=== PATIENT | male | born 1985 | race Caucasian/White ===

== ENCOUNTER 2020-11-17 09:09 | Emergency (ER) | payer OTHER ==
[~2020-11-17] VITALS: Ht 185.4 cm; Wt 106.8 kg
[2020-11-17] MEDS ORDERED: IBUP-1506 PO (09:18)
[2020-11-17 10:30] VITALS: BP 139/72
== END 2020-11-17 10:30 | disposition home or self-care (01) ==
LOC: EMS 09:18
DX: S83.91XA Sprain of unspecified site of right knee, initial encounter (principal); J45.909 Unspecified asthma, uncomplicated; F17.210 Nicotine dependence, cigarettes, uncomplicated; Z91.030 Bee allergy status; Z91.013 Allergy to seafood; V89.9XXA Person injured in unspecified vehicle accident, initial encounter; Y93.89 Activity, other specified; Y92.89 Other specified places as the place of occurrence of the external cause; Y99.0 Civilian activity done for income or pay
CPT/HCPCS: 99282; 99283

== ENCOUNTER 2023-10-14 06:37 | Emergency (ER) | payer MEDICAID ==
[~2023-10-14] VITALS: Ht 185.4 cm; Wt 127.3 kg
[~2023-10-14 06:37] MED LIST: IBUP-1506 PO
[2023-10-14 07:57] LABS: COVID AG,FIA SOURCE NASAL SWAB
[2023-10-14 08:17] LABS: INFLUENZA TYPE A NEGATIVE FOR TYPE A (NEGATIVE); INFLUENZA TYPE B NEGATIVE FOR TYPE B (NEGATIVE); SARS-COV2 (COVID) ANTIGEN,FIA Negative (Negative)
[2023-10-14] MEDS ORDERED: 0.9% SODIUM CHLORIDE 5 ML NEB SOLUTION NEB ONE (08:43)
[2023-10-14] MEDS ORDERED: PredniSONE 20 MG TABLET PO ONE (08:45)
[2023-10-14] MEDS ORDERED: ALBUTEROL SULFATE 2.5 MG/0.5 ML NEB SOLUTION NEB ONE (08:45)
[2023-10-14 08:49] VITALS: PULSE 98; RESP 18; O2SAT 98
[2023-10-14 08:51] VITALS: PULSE 98; RESP 18; O2SAT 98
[2023-10-14 09:03] VITALS: PULSE 99; RESP 18; O2SAT 100
[2023-10-14] MEDS ORDERED: PRED-554 PO (09:28)
[2023-10-14] MEDS ORDERED: ALBU18HF12 IH (09:28)
[2023-10-14 11:04] VITALS: BP 135/94; PULSE 89; RESP 18; TEMP 98.5
== END 2023-10-14 11:09 | disposition home or self-care (01) ==
LOC: EMS 06:38
DX: J45.909 Unspecified asthma, uncomplicated (principal); Z87.891 Personal history of nicotine dependence; Z91.030 Bee allergy status; Z20.822 Contact with and (suspected) exposure to COVID-19
CPT/HCPCS: 99285; 71045; 87426; 87804; 94640; 93005; J7512; J7613

== ENCOUNTER 2024-03-31 06:54 | Emergency (ER) | payer MEDICAID, OTHER ==
[~2024-03-31] VITALS: Ht 185.4 cm; Wt 104.5 kg
[~2024-03-31 06:54] MED LIST changes: +ALBU18HF12 IH; +PRED-554 PO
[2024-03-31 07:00] VITALS: TEMP 97.4
[2024-03-31] MEDS ORDERED: HYDR-4808 PO (07:00)
[2024-03-31] MEDS ORDERED: ESCI-8 PO (07:00)
[2024-03-31] MEDS ORDERED: GABA-1181 PO (07:00)
[2024-03-31 07:38] LABS: BASOPHILS % (AUTO) 0.6 % (0.0-2.0); EOSINOPHILS % (AUTO) 2.7 % (1.0-6.0); HEMATOCRIT 47.5 % (41-53); HEMOGLOBIN 16.3 g/dL (13.5-17.5); LYMPHOCYTES # (AUTO) 2.9 K/uL (1.0-4.8); LYMPHOCYTES % (AUTO) 35.3 % (22.0-44.0); MEAN CORPUSCULAR HEMOGLOBIN 29.8 pg (26.0-34.0); MEAN CORPUSCULAR HGB CONC 34.3 G/dL (31.0-37.0); MEAN CORPUSCULAR VOLUME 87 fL (80-100); MONOCYTES # (AUTO) 0.7 K/uL (0.1-1.0); MONOCYTES % (AUTO) 8.7 % (2.0-9.0); NEUTROPHILS # (AUTO) 4.4 K/uL (1.8-7.7); NEUTROPHILS % (AUTO) 52.7 % (40.0-70.0); PLATELET COUNT (AUTO) 197 K/uL (150-450); RED BLOOD CELL COUNT(AUTO) 5.47 MIL/uL (4.50-5.90); RED CELL DISTRIBUTION WIDTH 14.4 % (11.5-14.5); WHITE BLOOD COUNT (AUTO) 8.4 K/uL (4.5-11.0)
[2024-03-31 07:40] LABS: APPEARANCE,URINE CLEAR (CLEAR); BILIRUBIN,URINE NEGATIVE (NEGATIVE); COLOR,URINE YELLOW (YELLOW); GLUCOSE, URINE (UA) NEGATIVE (NEGATIVE); KETONES,URINE NEGATIVE (NEGATIVE); LEUKOCYTE ESTERASE ,URINE NEGATIVE (NEGATIVE); NITRATE,URINE NEGATIVE (NEGATIVE); OCCULT BLOOD,URINE NEGATIVE (NEGATIVE); PH,URINE 6.5 (5.0-8.0); PROTEIN,URINE TRACE mg/dL (NEGATIVE); SPECIFIC GRAVITIY, URINE 1.029 (1.003-1.030)
[2024-03-31 08:03] LABS: ANION GAP 8 mmol/L (8-16); CALCIUM, TOTAL 8.9 mg/dL (8.8-10.5); CARBON DIOXIDE 27 mmol/L (22-29); CHLORIDE 101 mmol/L (98-107); CREATININE 0.81 mg/dL (0.60-1.30); GLOMERULAR FILTR. RATE CALC > 60 mL/min (>60); GLUCOSE,RANDOM 105 mg/dL (70-110); SODIUM SERUM 136 mmol/L (136-145); UREA NITROGEN, BLOOD 14 mg/dL (7-18)
[2024-03-31 08:08] LABS: ALANINE AMINOTRANSFERASE 33 U/L (12-78); ALBUMIN 3.8 g/dL (3.4-5.0); ALKALINE PHOSPHATASE 84 U/L (46-116); ASPARTATE AMINOTRANSFERASE 20 U/L (15-37); BILIRUBIN,TOTAL 0.7 mg/dL (0.1-1.0); LIPASE 34 U/L (16-77); TOTAL PROTEIN, SERUM 8.3 g/dL (6.4-8.2)
[2024-03-31 09:05] VITALS: BP 137/76; PULSE 68; RESP 18
[2024-03-31] MEDS ORDERED: IBUP-1492 PO (09:19)
== END 2024-03-31 09:05 | disposition home or self-care (01) ==
LOC: EMS 06:55
DX: K80.50 Calculus of bile duct without cholangitis or cholecystitis without obstruction (principal); R10.11 Right upper quadrant pain; J45.909 Unspecified asthma, uncomplicated; Z91.030 Bee allergy status; Z91.013 Allergy to seafood
CPT/HCPCS: 71045; 80048; 80076; 81003; 83690; 85025; 93005; 99285; 36415-L1; 36415-TC

== ENCOUNTER 2024-08-14 08:56 | Emergency (ER) | payer MEDICAID, OTHER ==
[~2024-08-14] VITALS: Ht 185.4 cm; Wt 109.1 kg
[~2024-08-14 08:56] MED LIST changes: -ALBU18HF12 IH; +ESCI-8 PO; +GABA-1181 PO; +HYDR-4808 PO; +IBUP-1492 PO; -IBUP-1506 PO; -PRED-554 PO
[2024-08-14 08:57] VITALS: TEMP 98.4
[2024-08-14] MEDS: IBUPROFEN 600 MG TABLET PO ONE (11:06)
[2024-08-14] MEDS ORDERED: CYCL-448 PO (11:21)
[2024-08-14 11:24] VITALS: BP 122/88; PULSE 66; RESP 18; O2SAT 99
== END 2024-08-14 11:30 | disposition home or self-care (01) ==
LOC: EMS 08:56
DX: M54.50 Low back pain, unspecified (principal); M79.605 Pain in left leg; J45.909 Unspecified asthma, uncomplicated; Z91.030 Bee allergy status; Z91.013 Allergy to seafood
CPT/HCPCS: 72131; 99284

== ENCOUNTER 2025-01-16 08:16 | Emergency (ER) | payer MEDICAID ==
[~2025-01-16] VITALS: Ht 185.4 cm; Wt 104.5 kg
[~2025-01-16 08:16] MED LIST changes: +CYCL-448 PO; -ESCI-8 PO; -GABA-1181 PO; -HYDR-4808 PO; -IBUP-1492 PO
[2025-01-16 08:21] VITALS: TEMP 98.8
[2025-01-16 09:06] LABS: BASOPHILS % (AUTO) 0.7 % (0.0-2.0); EOSINOPHILS % (AUTO) 2.9 % (1.0-6.0); HEMATOCRIT 47.7 % (41-53); HEMOGLOBIN 16.1 g/dL (13.5-17.5); LYMPHOCYTES # (AUTO) 2.3 K/uL (1.0-4.8); LYMPHOCYTES % (AUTO) 25.4 % (22.0-44.0); MEAN CORPUSCULAR HEMOGLOBIN 30.2 pg (26.0-34.0); MEAN CORPUSCULAR HGB CONC 33.8 G/dL (31.0-37.0); MEAN CORPUSCULAR VOLUME 89 fL (80-100); MONOCYTES % (AUTO) 10.8 % (2.0-9.0); NEUTROPHILS # (AUTO) 5.4 K/uL (1.8-7.7); NEUTROPHILS % (AUTO) 60.2 % (40.0-70.0); PLATELET COUNT (AUTO) 159 K/uL (150-450); RED BLOOD CELL COUNT(AUTO) 5.35 MIL/uL (4.50-5.90); RED CELL DISTRIBUTION WIDTH 14.1 % (11.5-14.5); WHITE BLOOD COUNT (AUTO) 8.9 K/uL (4.5-11.0)
[2025-01-16 09:15] LABS: ANION GAP 3 mmol/L (8-16); CARBON DIOXIDE 31 mmol/L (22-29); CHLORIDE 103 mmol/L (98-107); CREATININE 0.83 mg/dL (0.60-1.30); GLOMERULAR FILTR. RATE CALC > 60 mL/min (>60); GLUCOSE,RANDOM 99 mg/dL (70-110); LIPASE 33 U/L (16-77); POTASSIUM 4.4 mmol/L (3.5-5.1); SODIUM SERUM 137 mmol/L (136-145); UREA NITROGEN, BLOOD 15 mg/dL (7-18)
[2025-01-16] MEDS: ACETAMINOPHEN 325 MG TABLET PO ONE (09:17)
[2025-01-16] MEDS: KETOROLAC TROMETHAMINE 30 MG/ML VIAL IM ONE (09:17)
[2025-01-16 09:19] LABS: ALBUMIN 3.5 g/dL (3.4-5.0); BILIRUBIN,DIRECT 0.2 mg/dL (0.00-0.20); BILIRUBIN,TOTAL 0.6 mg/dL (0.1-1.0); TOTAL PROTEIN, SERUM 7.6 g/dL (6.4-8.2)
[2025-01-16 10:25] LABS: APPEARANCE,URINE CLEAR (CLEAR); BILIRUBIN,URINE NEGATIVE (NEGATIVE); COLOR,URINE YELLOW (YELLOW); GLUCOSE, URINE (UA) NEGATIVE (NEGATIVE); KETONES,URINE NEGATIVE (NEGATIVE); LEUKOCYTE ESTERASE ,URINE NEGATIVE (NEGATIVE); NITRATE,URINE NEGATIVE (NEGATIVE); OCCULT BLOOD,URINE NEGATIVE (NEGATIVE); PH,URINE 6.5 (5.0-8.0); PROTEIN,URINE TRACE mg/dL (NEGATIVE); SPECIFIC GRAVITIY, URINE 1.029 (1.003-1.030)
[2025-01-16] MEDS ORDERED: MORP15TA70 PO (11:47)
[2025-01-16] MEDS ORDERED: ONDA-104 PO (11:47)
[2025-01-16 11:54] VITALS: BP 135/74; PULSE 84; RESP 17; O2SAT 99
== END 2025-01-16 12:18 | disposition home or self-care (01) ==
LOC: EMS 08:19
DX: K80.20 Calculus of gallbladder without cholecystitis without obstruction (principal); K80.50 Calculus of bile duct without cholangitis or cholecystitis without obstruction; J45.909 Unspecified asthma, uncomplicated; Z91.030 Bee allergy status
CPT/HCPCS: 99285; 76705; 80048; 80076; 81003; 83690; 85025; 36415; 96372; J1885

== ENCOUNTER 2025-03-27 12:03 | Inpatient (IN) | payer MEDICAID ==
[~2025-03-27] VITALS: Ht 185.4 cm; Wt 129.3 kg
[~2025-03-27 12:03] MED LIST changes: -CYCL-448 PO; +DIVA-153 PO; +LITH300C3 PO
[2025-03-27 13:26] LABS: COVID AG,FIA SOURCE NASAL SWAB
[2025-03-27] MEDS ORDERED: haloperidoL 5 MG TABLET PO PRN (13:30)
[2025-03-27] MEDS ORDERED: LORazepam 2 MG TABLET PO PRN (13:30)
[2025-03-27 13:31] LABS: PH,URINE DRUG SCREEN 6.5 (5.0-8.0)
[2025-03-27] MEDS: LORazepam 2 MG TABLET PO ONE (13:31)
[2025-03-27] MEDS: IBUPROFEN 600 MG TABLET PO ONE (13:32)
[2025-03-27] MEDS: ACETAMINOPHEN 500 MG TABLET PO ONE (13:33)
[2025-03-27 13:37] LABS: BASOPHILS % (AUTO) 0.7 % (0.0-2.0); EOSINOPHILS % (AUTO) 1.2 % (1.0-6.0); HEMATOCRIT 48.1 % (41-53); HEMOGLOBIN 16.3 g/dL (13.5-17.5); LYMPHOCYTES # (AUTO) 2.4 K/uL (1.0-4.8); LYMPHOCYTES % (AUTO) 26.4 % (22.0-44.0); MEAN CORPUSCULAR HEMOGLOBIN 29.6 pg (26.0-34.0); MEAN CORPUSCULAR VOLUME 87 fL (80-100); MONOCYTES # (AUTO) 0.6 K/uL (0.1-1.0); MONOCYTES % (AUTO) 6.8 % (2.0-9.0); NEUTROPHILS # (AUTO) 5.9 K/uL (1.8-7.7); NEUTROPHILS % (AUTO) 64.9 % (40.0-70.0); PLATELET COUNT (AUTO) 180 K/uL (150-450); RED BLOOD CELL COUNT(AUTO) 5.52 MIL/uL (4.50-5.90); RED CELL DISTRIBUTION WIDTH 13.4 % (11.5-14.5); WHITE BLOOD COUNT (AUTO) 9.1 K/uL (4.5-11.0)
[2025-03-27 13:37] LABS: ALCOHOL, URINE DRUG SCREEN POSITIVE (NEGATIVE); AMPHET/METH SCREEN,URINE NEGATIVE (NEGATIVE); BARBITURATE SCREEN, URINE NEGATIVE (NEGATIVE); BENZODIAZEPINES SCREEN,URINE NEGATIVE (NEGATIVE); CANNABINOID SCREEN,URINE NEGATIVE (NEGATIVE); COCAINE SCREEN,URINE POSITIVE (NEGATIVE); METHADONE SCREEN, URINE NEGATIVE (NEGATIVE); OPIATE SCREEN,URINE NEGATIVE (NEGATIVE); PHENCYCLIDINE SCREEN,URINE NEGATIVE (NEGATIVE)
[2025-03-27 13:43] LABS: SARS-COV2 (COVID) ANTIGEN,FIA Negative (Negative)
[2025-03-27 13:44] LABS: ANION GAP 5 mmol/L (8-16); CALCIUM, TOTAL 8.8 mg/dL (8.8-10.5); CARBON DIOXIDE 32 mmol/L (22-29); CHLORIDE 96 mmol/L (98-107); CREATININE 0.93 mg/dL (0.60-1.30); GLOMERULAR FILTR. RATE CALC > 60 mL/min (>60); GLUCOSE,RANDOM 83 mg/dL (70-110); POTASSIUM 3.9 mmol/L (3.5-5.1); SODIUM SERUM 133 mmol/L (136-145); UREA NITROGEN, BLOOD 4 mg/dL (7-18)
[2025-03-27 13:56] LABS: VALPROIC ACID 9 mcg/mL (50-100)
[2025-03-27 13:59] LABS: LITHIUM < 0.20 mmol/L (0.60-1.20)
[2025-03-28] MEDS: DIVALPROEX SODIUM 500 MG ER TABLET PO ONE (15:34)
[2025-03-28] MEDS: DIPHENOXYLATE/ATROP 2.5-0.025 MG TABLET PO ONE (15:34)
[2025-03-28] MEDS: ACETAMINOPHEN 500 MG TABLET PO ONE (15:34)
[2025-03-28] MEDS: NICOTINE 21 MG/24 HOUR PATCH TD ONE (16:24)
[2025-03-28] MEDS: LITHIUM CARBONATE 300 MG CAPSULE PO ONE (16:24)
[2025-03-28 17:03] VITALS: O2SAT 98
[2025-03-28 18:59] VITALS: BP 115/63; PULSE 71; RESP 18; TEMP 98.1; O2SAT 96
[2025-03-28 20:53] VITALS: BP 117/82; PULSE 71; RESP 18; TEMP 98.1; O2SAT 96
[2025-03-29] MEDS: ZOLPIDEM TARTRATE 10 MG TABLET PO PRN (00:17)
[2025-03-29 06:44] VITALS: BP 120/77; PULSE 74; RESP 18; TEMP 98; O2SAT 98
[2025-03-29] MEDS ORDERED: LORazepam 2 MG TABLET PO PRN (06:45)
[2025-03-29] MEDS: CYANOCOBALAMIN 1,000 MCG/ML VIAL IM ONE (06:58)
[2025-03-29] MEDS ORDERED: ALBUTEROL SULFATE HFA 90 MCG/PUFF 8 GM INHALER IH PRN (07:45)
[2025-03-29] MEDS ORDERED: MAGNESIUM HYDROXIDE SUSPENSION 30 ML UDCUP PO PRN (07:45)
[2025-03-29] MEDS ORDERED: BENZOCAINE/MENTHOL [CEPACOL] LOZENGE PO PRN (07:45)
[2025-03-29] MEDS ORDERED: LOPERAMIDE HCL 2 MG CAPSULE PO PRN (07:45)
[2025-03-29] MEDS ORDERED: PETROLATUM,WHITE 28 GM JELLY TP PRN (07:45)
[2025-03-29] MEDS ORDERED: MAG HYDROX/ALUMINUM HYD/SIMETH ES 30 ML SUSPENSION UDCUP PO PRN (07:45)
[2025-03-29] MEDS ORDERED: BACITRACIN 28 GM OINTMENT TP PRN (07:45)
[2025-03-29] MEDS ORDERED: CloNIDine HCL 0.1 MG TABLET PO PRN (07:45)
[2025-03-29] MEDS ORDERED: ONDANSETRON 4 MG TABLET PO PRN (07:45)
[2025-03-29] MEDS ORDERED: OMEPRAZOLE 20 MG CAPSULE PO PRN (07:45)
[2025-03-29] MEDS ORDERED: DOCUSATE SODIUM 100 MG CAPSULE PO PRN (07:45)
[2025-03-29 08:38] VITALS: BP 123/86; PULSE 100; RESP 16; TEMP 98; O2SAT 95
[2025-03-29] MEDS: DIVALPROEX SODIUM 500 MG ER TABLET PO SCH (08:56)
[2025-03-29] MEDS: THIAMINE 100 MG TABLET PO SCH (08:57)
[2025-03-29] MEDS: LITHIUM CARBONATE 300 MG CAPSULE PO SCH (08:57)
[2025-03-29] MEDS: MULTIVITAMINS WITH MINERALS, THERAPEUTIC TABLET PO SCH (08:57)
[2025-03-29] MEDS: FOLIC ACID 1 MG TABLET PO SCH (08:57)
[2025-03-29 09:06] LABS: HEMOGLOBIN A1C 5.4 % (3.8-5.6)
[2025-03-29 09:24] LABS: CHOL/HDL RATIO 4.3 (4.2-7.3); T4 (THYROXINE) 9.2 mcg/dL (4.7-13.3); THYROID STIMULATING HORMONE 3.66 uIU/mL (0.36-3.74)
[2025-03-29 18:37] VITALS: BP 140/91; PULSE 100; RESP 18; TEMP 97.2; O2SAT 98
[2025-03-29] MEDS: NICOTINE 14 MG/24 HOUR PATCH TD SCH (20:23)
[2025-03-29 21:12] VITALS: BP 139/98; PULSE 86; RESP 18; TEMP 97.3; O2SAT 97
[2025-03-30] MEDS ORDERED: LORazepam 2 MG TABLET PO PRN (07:00)
[2025-03-30 08:58] VITALS: BP 141/93; PULSE 60; RESP 16; TEMP 97.3; O2SAT 96
[2025-03-30] MEDS: LORazepam 2 MG TABLET PO SCH (09:13)
[2025-03-30 09:14] LABS: ANION GAP 5 mmol/L (8-16); CALCIUM, TOTAL 8.7 mg/dL (8.8-10.5); CARBON DIOXIDE 31 mmol/L (22-29); CHLORIDE 101 mmol/L (98-107); CREATININE 0.81 mg/dL (0.60-1.30); GLOMERULAR FILTR. RATE CALC > 60 mL/min (>60); GLUCOSE,RANDOM 82 mg/dL (70-110); POTASSIUM 3.7 mmol/L (3.5-5.1); SODIUM SERUM 137 mmol/L (136-145); UREA NITROGEN, BLOOD 8 mg/dL (7-18)
[2025-03-30 20:16] VITALS: BP 139/91; PULSE 87; RESP 18; TEMP 97.3; O2SAT 96
[2025-03-31 09:09] VITALS: BP 127/89; PULSE 99; RESP 17; TEMP 97.2; O2SAT 96
[2025-03-31] MEDS: ACETAMINOPHEN 325 MG TABLET PO PRN (16:14)
[2025-03-31 16:21] VITALS: BP 129/90; PULSE 85; RESP 18; TEMP 97.4; O2SAT 96
[2025-03-31 17:15] VITALS: RESP 18
[2025-03-31 20:15] VITALS: BP 117/94; PULSE 95; RESP 18; TEMP 97.3; O2SAT 98
[2025-04-01] MEDS ORDERED: LORazepam 1 MG TABLET PO PRN (07:00)
[2025-04-01 08:15] VITALS: BP 130/97; PULSE 85; RESP 18; TEMP 97.4; O2SAT 85
[2025-04-01] MEDS: LORazepam 1 MG TABLET PO SCH (08:27)
[2025-04-01 21:52] VITALS: BP 131/83; PULSE 93; RESP 18; TEMP 98.2; O2SAT 96
[2025-04-02] MEDS ORDERED: LORazepam 1 MG TABLET PO PRN (07:00)
[2025-04-02 09:00] VITALS: BP 132/74; PULSE 93; RESP 18; TEMP 97.9; O2SAT 97
[2025-04-02] MEDS: DIVALPROEX SODIUM 500 MG ER TABLET PO SCH (09:23)
[2025-04-02] MEDS: LITHIUM CARBONATE 300 MG CAPSULE PO SCH (09:24)
[2025-04-02 09:25] VITALS: RESP 18; O2SAT 97
[2025-04-02] MEDS: IBUPROFEN 600 MG TABLET PO PRN (09:25)
[2025-04-02 10:25] VITALS: RESP 17; O2SAT 97
[2025-04-02 10:31] VITALS: BP 132/74; PULSE 93; RESP 18; TEMP 97.8; O2SAT 97
[2025-04-02 20:42] VITALS: BP 127/83; PULSE 66; RESP 17; TEMP 97; O2SAT 97
[2025-04-03 08:12] VITALS: BP 135/89; PULSE 92; RESP 17; TEMP 98.2; O2SAT 95
[2025-04-03 21:19] VITALS: BP 127/89; PULSE 66; RESP 18; TEMP 97.8; O2SAT 99
[2025-04-04 08:00] VITALS: BP 127/79; PULSE 70; RESP 18; TEMP 98; O2SAT 97
[2025-04-04 21:20] VITALS: BP 138/90; PULSE 69; RESP 18; TEMP 97.9; O2SAT 97
[2025-04-05 08:52] VITALS: BP 137/92; PULSE 65; RESP 18; TEMP 97.3; O2SAT 99
[2025-04-05 20:06] VITALS: BP 154/91; PULSE 73; RESP 16; TEMP 97.5; O2SAT 100
[2025-04-06] MEDS ORDERED: LITH300C3 PO (06:09)
[2025-04-06] MEDS ORDERED: DIVA-153 PO (06:09)
[2025-04-06 09:11] VITALS: BP 142/95; PULSE 94; RESP 18; TEMP 98.2; O2SAT 98
== END 2025-04-06 10:00 | disposition home or self-care (01) | DRG 753 ==
LOC: EMS 12:03 → B2S 03-28 15:43
PROVIDERS: ADMIT Psychiatry & Neurology Psychiatry; ATTEND Psychiatry & Neurology Psychiatry
PROC: GZHZZZZ Group Psychotherapy (ICD-10-PCS; principal; 2025-03-29)
PROC: GZ52ZZZ Individual Psychotherapy, Cognitive (ICD-10-PCS; 2025-03-29)
DX: F31.4 Bipolar disorder, current episode depressed, severe, without psychotic features (principal); R45.851 Suicidal ideations; F41.9 Anxiety disorder, unspecified; F10.239 Alcohol dependence with withdrawal, unspecified; Z20.822 Contact with and (suspected) exposure to COVID-19; F14.10 Cocaine abuse, uncomplicated; J44.89 Other specified chronic obstructive pulmonary disease; G47.00 Insomnia, unspecified; I10 Essential (primary) hypertension; F10.229 Alcohol dependence with intoxication, unspecified; M54.9 Dorsalgia, unspecified; Y90.3 Blood alcohol level of 60-79 mg/100 ml; G89.29 Other chronic pain; K59.00 Constipation, unspecified; Z79.899 Other long term (current) drug therapy; Z87.891 Personal history of nicotine dependence; Z91.51 Personal history of suicidal behavior; Z91.030 Bee allergy status; Z91.013 Allergy to seafood
CPT/HCPCS: 80048; 80061; 80164; 80178; 80307; 83036; 84436; 84443; 85025; 99285; G0480; J3420

== ENCOUNTER 2025-04-27 10:03 | Inpatient (IN) | payer MEDICAID ==
[~2025-04-27] VITALS: Ht 185.4 cm; Wt 130.1 kg
[2025-04-27 10:18] LABS: COVID AG,FIA SOURCE NASAL SWAB
[2025-04-27 10:29] LABS: PLATELET COUNT (AUTO) 151 K/uL (150-450); RED BLOOD CELL COUNT(AUTO) 5.59 MIL/uL (4.50-5.90); RED CELL DISTRIBUTION WIDTH 15.7 % (11.5-14.5); WHITE BLOOD COUNT (AUTO) 6.0 K/uL (4.5-11.0)
[2025-04-27 10:37] LABS: CALCIUM, TOTAL 8.4 mg/dL (8.8-10.5); CREATININE 0.66 mg/dL (0.60-1.30); GLOMERULAR FILTR. RATE CALC > 60 mL/min (>60); GLUCOSE,RANDOM 105 mg/dL (70-110); SODIUM SERUM 143 mmol/L (136-145); UREA NITROGEN, BLOOD 5 mg/dL (7-18)
[2025-04-27 10:56] LABS: APPEARANCE,URINE CLEAR (CLEAR); GLUCOSE, URINE (UA) NEGATIVE (NEGATIVE); LEUKOCYTE ESTERASE ,URINE NEGATIVE (NEGATIVE); NITRATE,URINE NEGATIVE (NEGATIVE); OCCULT BLOOD,URINE NEGATIVE (NEGATIVE); PH,URINE DRUG SCREEN 6.0 (5.0-8.0); SPECIFIC GRAVITIY, URINE 1.021 (1.003-1.030)
[2025-04-27 11:01] LABS: ALCOHOL, URINE DRUG SCREEN POSITIVE (NEGATIVE); AMPHET/METH SCREEN,URINE NEGATIVE (NEGATIVE); BARBITURATE SCREEN, URINE NEGATIVE (NEGATIVE); CANNABINOID SCREEN,URINE POSITIVE (NEGATIVE); COCAINE SCREEN,URINE NEGATIVE (NEGATIVE); METHADONE SCREEN, URINE NEGATIVE (NEGATIVE)
[2025-04-27 11:02] LABS: SARS-COV2 (COVID) ANTIGEN,FIA Negative (Negative)
[2025-04-27] MEDS ORDERED: LOPERAMIDE HCL 2 MG CAPSULE PO PRN (11:30)
[2025-04-27] MEDS ORDERED: GuaiFENesin/D-METHORPHAN [SUGAR-FREE] 200-20MG/10 ML SYRUP UDCUP PO PRN (11:30)
[2025-04-27] MEDS: FOLIC ACID 1 MG TABLET PO SCH (11:44)
[2025-04-27] MEDS: CYANOCOBALAMIN 1,000 MCG/ML VIAL IM ONE (11:44)
[2025-04-27 15:00] VITALS: BP 156/91; PULSE 58; RESP 17; TEMP 97.5; O2SAT 97
[2025-04-27 16:00] VITALS: BP 139/59; PULSE 69; RESP 17; TEMP 98; O2SAT 98
[2025-04-27] MEDS: THIAMINE 100 MG TABLET PO SCH (16:34)
[2025-04-27 16:47] VITALS: BP 156/91; PULSE 58; RESP 17; TEMP 97.5; O2SAT 97
[2025-04-27 17:00] VITALS: BP 130/66; PULSE 77; RESP 16; TEMP 97.5; O2SAT 97
[2025-04-27 18:00] VITALS: BP 124/66; PULSE 70; RESP 18; TEMP 97; O2SAT 100
[2025-04-27 23:45] VITALS: BP 138/92; PULSE 65; RESP 18; TEMP 97.9; O2SAT 95
[2025-04-28] VITALS (7 sets, daily range): BP systolic 131–154; BP diastolic 74–114; PULSE 54–97; RESP 17–19; TEMP 97.7–98.4; O2SAT 96–100
[2025-04-28] MEDS ORDERED: BACITRACIN 28 GM OINTMENT TP PRN (08:00)
[2025-04-28] MEDS ORDERED: PETROLATUM,WHITE 28 GM JELLY TP PRN (08:00)
[2025-04-28] MEDS ORDERED: IBUPROFEN 600 MG TABLET PO PRN (08:00)
[2025-04-28] MEDS ORDERED: OMEPRAZOLE 20 MG CAPSULE PO PRN (08:00)
[2025-04-28] MEDS ORDERED: MAGNESIUM HYDROXIDE SUSPENSION 30 ML UDCUP PO PRN (08:00)
[2025-04-28] MEDS ORDERED: BENZOCAINE/MENTHOL [CEPACOL] LOZENGE PO PRN (08:00)
[2025-04-28] MEDS ORDERED: ONDANSETRON 4 MG TABLET PO PRN (08:00)
[2025-04-28] MEDS ORDERED: ALBUTEROL SULFATE HFA 90 MCG/PUFF 8 GM INHALER IH PRN (08:00)
[2025-04-28] MEDS ORDERED: ACETAMINOPHEN 325 MG TABLET PO PRN (08:00)
[2025-04-28] MEDS ORDERED: DOCUSATE SODIUM 100 MG CAPSULE PO PRN (08:00)
[2025-04-28] MEDS: MULTIVITAMINS WITH MINERALS, THERAPEUTIC TABLET PO SCH (08:11)
[2025-04-28] MEDS: NICOTINE 14 MG/24 HOUR PATCH TD PRN (10:17)
[2025-04-28] MEDS: LOPERAMIDE HCL 2 MG CAPSULE PO PRN (20:20)
[2025-04-29] MEDS: DIVALPROEX SODIUM 500 MG ER TABLET PO SCH (08:51)
[2025-04-29] MEDS: LITHIUM CARBONATE 300 MG CAPSULE PO SCH (08:52)
[2025-04-29 11:04] VITALS: BP 143/105; PULSE 106; RESP 17; TEMP 97.1; O2SAT 97
[2025-04-29 11:08] VITALS: BP 143/105; PULSE 106; RESP 17; TEMP 97.1; O2SAT 97
[2025-04-29] MEDS: MAG HYDROX/ALUMINUM HYD/SIMETH ES 30 ML SUSPENSION UDCUP PO PRN (18:07)
[2025-04-29 20:36] VITALS: BP 134/94; PULSE 100; RESP 18; TEMP 97.3; O2SAT 97
[2025-04-29 23:30] VITALS: BP 132/100; PULSE 100; RESP 18; TEMP 97.3; O2SAT 96
[2025-04-30] MEDS: ZOLPIDEM TARTRATE 10 MG TABLET PO PRN (00:03)
[2025-04-30 14:29] VITALS: BP 135/99; PULSE 103; RESP 18; TEMP 97.5; O2SAT 99
[2025-04-30 14:30] VITALS: BP 135/99; PULSE 103; RESP 18; TEMP 97.5; O2SAT 99
[2025-04-30 22:22] VITALS: BP 115/98; PULSE 67; RESP 18; TEMP 97.2; O2SAT 97
[2025-04-30 22:31] VITALS: BP 115/98; PULSE 67; RESP 18; TEMP 97.2; O2SAT 97
[2025-05-01 08:30] VITALS: BP 119/84; PULSE 111; RESP 18; TEMP 98.2; O2SAT 95
[2025-05-01 11:10] VITALS: BP 119/84; PULSE 110; RESP 18; TEMP 98.2; O2SAT 96
[2025-05-01 23:35] VITALS: BP 140/99; PULSE 99; RESP 18; TEMP 97.1; O2SAT 96
[2025-05-01 23:40] VITALS: BP 140/99; PULSE 100; RESP 18; TEMP 97.1; O2SAT 96
[2025-05-02 12:28] VITALS: BP 136/86; PULSE 100; RESP 18; TEMP 97.5; O2SAT 100
[2025-05-02 12:39] VITALS: BP 136/86; PULSE 96; RESP 18; TEMP 97.5; O2SAT 96
[2025-05-02 22:11] VITALS: BP 117/84; PULSE 70; RESP 20; TEMP 97.9; O2SAT 98
[2025-05-03 08:00] VITALS: BP 158/103; PULSE 90; RESP 18; TEMP 97.8
[2025-05-03] MEDS ORDERED: LISI-893 PO (18:19)
[2025-05-03 20:30] VITALS: BP 133/82; PULSE 71; RESP 18; TEMP 97; O2SAT 96
[2025-05-04 08:57] VITALS: BP 123/82; PULSE 68; RESP 20; TEMP 98.1; O2SAT 99
== END 2025-05-04 13:25 | disposition home or self-care (01) | DRG 753 ==
LOC: EMS 10:05 → 3EI 15:33
PROVIDERS: ADMIT Psychiatry & Neurology Psychiatry; ATTEND Psychiatry & Neurology Psychiatry
PROC: GZHZZZZ Group Psychotherapy (ICD-10-PCS; principal; 2025-04-28)
PROC: GZ51ZZZ Individual Psychotherapy, Behavioral (ICD-10-PCS; 2025-04-28)
DX: F31.5 Bipolar disorder, current episode depressed, severe, with psychotic features (principal); R45.851 Suicidal ideations; Y90.6 Blood alcohol level of 120-199 mg/100 ml; F10.239 Alcohol dependence with withdrawal, unspecified; I10 Essential (primary) hypertension; Z20.822 Contact with and (suspected) exposure to COVID-19; F12.10 Cannabis abuse, uncomplicated; J44.9 Chronic obstructive pulmonary disease, unspecified; F14.10 Cocaine abuse, uncomplicated; G47.00 Insomnia, unspecified; K59.00 Constipation, unspecified; F41.9 Anxiety disorder, unspecified; M54.9 Dorsalgia, unspecified; G89.29 Other chronic pain; Z79.899 Other long term (current) drug therapy
CPT/HCPCS: 80048; 80307; 81003; 85025; 96372; 99285; G0480; J3420